=== PATIENT | female | born 1950 | race Caucasian/White ===

== ENCOUNTER 2019-01-12 16:38 | Emergency (ER) | payer MEDICARE, MEDICAID ==
[~2019-01-12] VITALS: Ht 162.6 cm; Wt 65.8 kg
--- NOTE | 2019-01-12 17:25 | NUR ---
Patient discharged to home in stable conditon. Written and verbal after care instructions given. Patient verbalizes understanding of instructions.
== END 2019-01-12 17:27 | disposition home or self-care (01) ==
LOC: ER 16:40
DX: S67.192A Crushing injury of right middle finger, initial encounter (principal); S60.131A Contusion of right middle finger with damage to nail, initial encounter; Z88.1 Allergy status to other antibiotic agents; Z88.8 Allergy status to other drugs, medicaments and biological substances; Z91.018 Allergy to other foods; W23.0XXA Caught, crushed, jammed, or pinched between moving objects, initial encounter; Y93.89 Activity, other specified; Y92.89 Other specified places as the place of occurrence of the external cause; Y99.8 Other external cause status
CPT/HCPCS: 73140; A4663

== ENCOUNTER 2019-01-16 16:51 | Emergency (ER) | payer MEDICARE, MEDICAID ==
[~2019-01-16] VITALS: Ht 162.6 cm; Wt 65.8 kg
--- NOTE | 2019-01-16 17:36 | NUR ---
Patient discharged to home in stable conditon. Written and verbal after care instructions given. Patient verbalizes understanding of instructions.PT WALKS IN STEADY GAIT. PT WITH CAREGIVER.
== END 2019-01-16 17:38 | disposition home or self-care (01) ==
LOC: ER 16:51
DX: L03.011 Cellulitis of right finger (principal); Z88.1 Allergy status to other antibiotic agents; Z88.2 Allergy status to sulfonamides; Z88.8 Allergy status to other drugs, medicaments and biological substances; Z91.018 Allergy to other foods
CPT/HCPCS: A4663

== ENCOUNTER 2019-09-03 21:53 | Inpatient (IN) | payer MEDICARE, MEDICAID ==
[~2019-09-03] VITALS: Ht 165.1 cm; Wt 56.2 kg
[2019-09-03 22:54] LABS: HEMOGLOBIN 13.5 G/DL (12.0-16.0); RED BLOOD CELL COUNT(AUTO) 4.25 MIL/UL (4.2-5.4); WHITE BLOOD COUNT (AUTO) 10.2 K/UL (4.0-11.2)
[2019-09-03 22:55] LABS: HEMATOCRIT 40.4 % (37-47); LYMPHOCYTES % (AUTO) 23.3 % (20.5-51.5); MEAN CORPUSCULAR HEMOGLOBIN 31.7 UUG (27.0-31.0); MEAN CORPUSCULAR HGB CONC 33 g/dL (32.0-37.0); MEAN CORPUSCULAR VOLUME 95.1 FL (81.0-99.0); NEUTROPHILS % (AUTO) 64.5 % (38.5-71.5); PLATELET COUNT (AUTO) 272 K/UL (150-450)
[2019-09-03 22:56] LABS: BASOPHILS # (AUTO) 0.1 K/uL (0.0-8.0); BASOPHILS % (AUTO) 0.6 % (0.0-2.0); EOSINOPHILS # (AUTO) 0.6 K/uL (0.0-0.7); EOSINOPHILS % (AUTO) 5.6 % (0.0-7.0); LYMPHOCYTES # (AUTO) 2.4 K/UL (0.8-4.8); MONOCYTES # (AUTO) 0.6 K/UL (0.1-1.30); NEUTROPHILS # (AUTO) 6.5 K/UL (1.8-8.9)
[2019-09-03 23:23] LABS: BILIRUBIN,DIRECT 0.8 mg/dL (0.0-0.2); BILIRUBIN,TOTAL 0.4 mg/dL (0.1-1.0); CREATININE 0.8 mg/dL (0.6-1.3)
[2019-09-03 23:24] LABS: TOTAL PROTEIN, SERUM 6.5 g/dL (6.4-8.2)
[2019-09-03 23:39] LABS: *CLARITY,URINE CLEAR (CLEAR); *COLOR,URINE YELLOW (YELLOW)
[2019-09-03 23:40] LABS: *BILIRUBIN,URIN NEGATIVE (NEGATIVE); *BLOOD, URINE NEGATIVE (NEGATIVE); *KETONES,URINE NEGATIVE (NEGATIVE); *UROBILINOGEN,URINE 0.2 E.U./dl (NORMAL); LEUKOCYTE ESTERASE ,URINE NEGATIVE (NEGATIVE); NITRITE, URINE NEGATIVE (NEGATIVE); PH,URINE 8.5 (5.0-8.0); UGLUCOSE NEGATIVE (NEGATIVE)
[2019-09-03] MEDS ORDERED: diclofenac topical TOP (23:40)
[2019-09-03] MEDS ORDERED: LEVO25TA2 PO (23:40)
[2019-09-03] MEDS ORDERED: RISP0.5T20 PO (23:40)
[2019-09-03] MEDS ORDERED: PROG100C15 PO (23:40)
[2019-09-03] MEDS ORDERED: HYDR2TAB4 PO (23:40)
[2019-09-03] MEDS ORDERED: CARI350T PO (23:40)
[2019-09-03] MEDS ORDERED: armour thyroid PO (23:40)
[2019-09-03] MEDS ORDERED: ALPR0.255 PO (23:40)
[2019-09-03] MEDS ORDERED: THIO100T PO (23:40)
[2019-09-03] MEDS ORDERED: ESTR0.5T PO (23:40)
[2019-09-03] MEDS ORDERED: ACET650T7 PO (23:40)
[2019-09-03] MEDS ORDERED: TRAM50TA2 PO (23:40)
[2019-09-03] MEDS ORDERED: DIME50TA26 PO (23:40)
[2019-09-03] MEDS ORDERED: DIPH1TAB PO (23:40)
[2019-09-03] MEDS ORDERED: PREG50CA PO (23:40)
[2019-09-03] MEDS ORDERED: VALA500T34 PO (23:40)
[2019-09-03] MEDS ORDERED: CLOPIDOGREL 75 MG TABLET ONE (23:42)
[2019-09-03] MEDS ORDERED: ACETAMINOPHEN ES 500 MG TABLET ONE (23:42)
[2019-09-03] MEDS ORDERED: CLOPIDOGREL 75 MG TABLET PO ONE (23:45)
[2019-09-03] MEDS ORDERED: ACETAMINOPHEN ES 500 MG TABLET PO ONE (23:45)
[2019-09-04] MEDS ORDERED: LORA-258 PO (00:19)
[2019-09-04] MEDS ORDERED: MAGNESIUM HYDROXIDE 30 ML LIQUID UDC PO PRN (00:30)
[2019-09-04] MEDS ORDERED: ACETAMINOPHEN 325 MG TABLET PO PRN (00:30)
[2019-09-04] MEDS ORDERED: HYDROMORPHONE HCL 2 MG TABLET PO PRN (00:30)
[2019-09-04] MEDS ORDERED: LORAZEPAM 0.5 MG TABLET PO PRN (00:30)
[2019-09-04] MEDS ORDERED: Z GUARD REMEDY PASTE 57 GM TUBE TOP PRN (00:30)
[2019-09-04] MEDS ORDERED: DIPHENOXYLATE HCL/ATROP SULF TABLET PO PRN ×2 (00:30→04:00)
[2019-09-04] MEDS ORDERED: HYDROCODONE/APAP 5-325MG TABLET PO PRN (00:30)
[2019-09-04] MEDS ORDERED: ONDANSETRON 4 MG/2 ML VIAL IV PRN (00:30)
[2019-09-04] MEDS ORDERED: ALPRAZOLAM 0.25 MG TABLET PO PRN ×2 (00:30→04:00)
[2019-09-04] MEDS ORDERED: DIMENHYDRINATE 50 MG PO PRN ×2 (00:30→12:15)
[2019-09-04 01:20] VITALS: BP 134/65
[2019-09-04 04:54] VITALS: BP 93/54
[2019-09-04] MEDS ORDERED: BLOOD SUGAR DIAGNOSTIC 1 EACH STRIP VI SCH (06:00)
[2019-09-04] MEDS ORDERED: THYR60TA2 PO (06:19)
[2019-09-04] MEDS: BLOOD SUGAR DIAGNOSTIC 1 EACH STRIP VI SCH ×4 (06:30→21:13)
[2019-09-04] MEDS ORDERED: LEVOTHYROXINE SODIUM 25 MCG TABLET PO SCH ×3 (07:30→09:00)
[2019-09-04] MEDS ORDERED: LEVOTHYROXINE SODIUM 25 MCG TABLET PO ONE (07:30)
[2019-09-04] MEDS ORDERED: TRAMADOL HCL 50 MG TABLET PO PRN (09:00)
[2019-09-04] MEDS ORDERED: ACETAMINOPHEN 1300 MG PO SCH (09:00)
[2019-09-04] MEDS ORDERED: PREGABALIN 25 MG CAPSULE PO SCH (09:00)
[2019-09-04] MEDS ORDERED: PREGABALIN 50 MG CAPSULE PO SCH ×2 (09:00)
[2019-09-04] MEDS ORDERED: CARISOPRODOL 350 MG TABLET PO SCH ×2 (09:00)
[2019-09-04] MEDS ORDERED: TRAMADOL HCL 50 MG TABLET PO SCH ×2 (09:00)
[2019-09-04 09:10] LABS: POTASSIUM 4.4 mmol/L (3.5-5.1)
[2019-09-04 09:11] LABS: CREATININE 0.7 mg/dL (0.6-1.3); MAGNESIUM 2.3 mg/dL (1.8-2.4); PHOSPHOROUS 3.4 mg/dL (2.5-4.9)
[2019-09-04 09:19] LABS: EOSINOPHILS % (AUTO) 5.6 % (0.0-7.0); HEMATOCRIT 39.6 % (37-47); LYMPHOCYTES % (AUTO) 19.5 % (20.5-51.5); MEAN CORPUSCULAR HEMOGLOBIN 31.3 UUG (27.0-31.0); MEAN CORPUSCULAR HGB CONC 33 g/dL (32.0-37.0); MEAN CORPUSCULAR VOLUME 95.4 FL (81.0-99.0); MONOCYTES % (AUTO) 6.3 % (0.0-11.0); NEUTROPHILS % (AUTO) 67.9 % (38.5-71.5); PLATELET COUNT (AUTO) 271 K/UL (150-450); RED BLOOD CELL COUNT(AUTO) 4.15 MIL/UL (4.2-5.4); WHITE BLOOD COUNT (AUTO) 9.1 K/UL (4.0-11.2)
[2019-09-04 09:20] LABS: BASOPHILS # (AUTO) 0.1 K/uL (0.0-8.0); BASOPHILS % (AUTO) 0.7 % (0.0-2.0); EOSINOPHILS # (AUTO) 0.5 K/uL (0.0-0.7); LYMPHOCYTES # (AUTO) 1.8 K/UL (0.8-4.8); MONOCYTES # (AUTO) 0.6 K/UL (0.1-1.30); NEUTROPHILS # (AUTO) 6.2 K/UL (1.8-8.9)
[2019-09-04] MEDS ORDERED: SYNTHROID 25 MCG PO ONE (10:00)
[2019-09-04 10:07] LABS: THYROID STIMULATING HORMONE 13.035 mIU/mL (0.358-3.740)
[2019-09-04 11:04] VITALS: BP 99/49
[2019-09-04 11:05] VITALS: BP 131/61
[2019-09-04] MEDS: VALACYCLOVIR 500 MG PO SCH (11:37)
[2019-09-04 15:10] VITALS: BP 125/70
[2019-09-04] MEDS: DICLOFENAC 1% TOP SCH ×2 (15:23→16:46)
[2019-09-04] MEDS ORDERED: ARMOUR THYROID 60 MG PO SCH (16:10)
[2019-09-04] MEDS ORDERED: THYROID 15 MG PO SCH (16:14)
[2019-09-04] MEDS ORDERED: THYROID PORK 30 MG PO SCH (16:18)
[2019-09-04] MEDS ORDERED: SOMA 350 MG PO SCH ×2 (17:00→21:00)
[2019-09-04] MEDS: TRAMADOL 50 MG PO PRN ×2 (17:42→21:26)
[2019-09-04] MEDS ORDERED: DICLOFENAC 1% TOP SCH (17:52)
[2019-09-04] MEDS ORDERED: LEVOTHYROXINE 25 MCG PO SCH (17:59)
[2019-09-04 20:08] VITALS: BP 116/59
[2019-09-04] MEDS ORDERED: PROGESTERONE 100 MG PO SCH (21:00)
[2019-09-04] MEDS ORDERED: ESTRADIOL 0.5 MG PO SCH (21:00)
[2019-09-04] MEDS ORDERED: [UNRECOGNIZED DRUG - OTHER] PO SCH (21:00)
[2019-09-04] MEDS ORDERED: Medication Not On Formulary EA (Progesterone,Micronized (Prometrium) 100 MG) PO SCH (21:00)
[2019-09-04] MEDS ORDERED: Medication Not On Formulary EA (Estradiol 0.5 MG) PO SCH (21:00)
[2019-09-04] MEDS ORDERED: RISPERIDONE 0.5 MG PO SCH (21:00)
[2019-09-04] MEDS ORDERED: THIORIDAZINE 25 MG PO SCH (21:00)
[2019-09-04] MEDS: PREGABALIN 25 MG CAPSULE PO SCH (21:54)
[2019-09-05] VITALS: BP 120/70
[2019-09-05 04:00] VITALS: BP 112/61
[2019-09-05] MEDS: BLOOD SUGAR DIAGNOSTIC 1 EACH STRIP VI SCH ×2 (06:37→11:35)
[2019-09-05] MEDS ORDERED: LEVOTHYROXINE 25 MCG PO SCH (07:30)
[2019-09-05] MEDS ORDERED: THYROID 60 MG PO SCH (07:30)
[2019-09-05] MEDS: PREGABALIN 25 MG CAPSULE PO SCH (08:28)
[2019-09-05] MEDS: VALACYCLOVIR 500 MG PO SCH (08:28)
[2019-09-05] MEDS: TRAMADOL 50 MG PO PRN ×2 (08:57→13:03)
[2019-09-05] MEDS ORDERED: LYRICA 25 MG PO SCH (09:00)
[2019-09-05] MEDS ORDERED: PREGABALIN 50 MG CAPSULE PO SCH (09:00)
[2019-09-05] MEDS ORDERED: SOMA 350 MG PO SCH ×2 (09:00→13:00)
[2019-09-05] MEDS ORDERED: PREG25CA19 PO (09:11)
[2019-09-05] MEDS ORDERED: PREGABALIN 25 MG PO SCH (09:14)
[2019-09-05 11:57] VITALS: BP 123/67
[2019-09-05] MEDS ORDERED: ATOR10TA PO (17:40)
[2019-09-05] MEDS ORDERED: CLOP75TA15 PO (17:40)
[2019-09-05] MEDS ORDERED: THIORIDAZINE 25 MG PO SCH (21:00)
[2019-09-05] MEDS ORDERED: THIORIDAZINE 10 MG PO SCH (21:00)
[2019-09-06] MEDS ORDERED: THYROID 15 MG PO SCH (09:00)
[2019-09-06] MEDS ORDERED: THYROID PORK 30 MG PO SCH (09:00)
[2019-09-06] MEDS ORDERED: ARMOUR THYROID 60 MG PO SCH (09:00)
[2019-09-07] MEDS ORDERED: LEVOTHYROXINE 25 MCG PO SCH (07:30)
[2019-09-09] MEDS ORDERED: LEVOTHYROXINE 25 MCG PO SCH (07:30)
== END 2019-09-05 15:20 | disposition left against medical advice (07) | DRG 552 ==
LOC: ER 21:53 → TELE3 09-04 00:39
PROVIDERS: ADMIT Family Medicine; ATTEND Family Medicine
DX: M51.17 Intervertebral disc disorders with radiculopathy, lumbosacral region (principal); G45.9 Transient cerebral ischemic attack, unspecified; Z96.653 Presence of artificial knee joint, bilateral; M62.81 Muscle weakness (generalized); Z85.850 Personal history of malignant neoplasm of thyroid; G89.29 Other chronic pain; Z79.890 Hormone replacement therapy; M25.78 Osteophyte, vertebrae; M48.07 Spinal stenosis, lumbosacral region; G89.18 Other acute postprocedural pain; R20.2 Paresthesia of skin; M48.061 Spinal stenosis, lumbar region without neurogenic claudication; F20.9 Schizophrenia, unspecified; Z79.899 Other long term (current) drug therapy; F41.9 Anxiety disorder, unspecified; I70.0 Atherosclerosis of aorta
CPT/HCPCS: 36415; 70030-TC; 70450; 71045; 72131; 83735; 84100; 84443; 85025; 85651; 85730; 87086; 93005; 93307; 93880; A4663; A9150; G0378